=== PATIENT | female | born 1975 | race Caucasian/White ===

== ENCOUNTER 2022-10-26 10:00 | Emergency (ER) | payer SELFPAY ==
--- NOTE | 2022-10-26 10:08 | ED.EAR ---
HPI - Ear Problem General Chief complaint: Ear Stated complaint: Bilateral Ear Irritation Time Seen by Provider: 10/26/22 10:17 Source: patient and RN notes reviewed Mode of arrival: ambulatory Limitations: no limitations History of Present Illness HPI Narrative: 47-year-old female presents with concern for bilateral ear pain. She reports she has had sinus congestion, pressure, pain for 2-3 weeks. She reports she has been taking Sudafed. Reports she woke up last night with ear pain. She denies changes in hearing or drainage from the ear MD Complaint: ear pain Related Data Home Medications Medication Instructions Recorded Confirmed duloxetine 30 mg capsule,delayed 30 mg PO DAILY 10/26/22 10/26/22 release Allergies Allergy/AdvReac Type Severity Reaction Status Date / Time Penicillins AdvReac Mild Rash Verified 10/26/22 10:13 bee stings AdvReac Severe Anaphylactic Uncoded 10/26/22 10:13 Shock Review of Systems Review of Systems: CONSTITUTIONAL: Reports malaise. Denies chills, sweats, or fever. EYES: Denies visual changes, redness, or discharge. ENT: Reports rhinorrhea, congestion, sinus pain. Denies sore throat. Reports bilateral ear pain CARDIOVASCULAR: Denies chest pain, palpitations, or edema. RESPIRATORY: Denies cough. Denies dyspnea. GASTROINTESTINAL: Denies abdominal pain, nausea, vomiting, diarrhea SKIN: Denies rash or itching. MUSCULOSKELETAL: Denies myalgia. NEUROLOGIC: Reports headache. All systems reviewed & are unremarkable except as noted in HPI and below PMFSH Comments At time of signature, agree with nursing past medical, surgical, social and family history. There is no relevant family history pertinent to the presenting complaint Exam Narrative: GENERAL: Nontoxic appearing and in no acute distress. HEAD: Normocephalic EYES: PERRLA, conjunctivae clear ENT: Nares clear, turbinates edematous, sinus tenderness. Mucous membranes moist. TM pearly oliveira with sharp light reflex bilaterally; no tragal tenderness. Oropharynx not erythematous without lesions. Tonsils not enlarged and without exudate, no drooling, no hoarseness, no trismus, uvula midline. NECK: Supple. No lymphadenopathy CHEST: Clear to auscultation, breath sounds equal. No wheezing, rhonchi, rales, or stridor. No respiratory distress, speaks in full sentences. HEART: Regular rate and rhythm. No murmur heard. SKIN: Warm, dry, no rash. NEURO: Alert and oriented x3. PSYCH: Normal mood and affect Course Course Emergency Course: Patient is aware of diagnosis, understands and agrees to treatment plan. Anticipatory guidance given. Patient agrees to follow-up as directed and is aware of reasons to seek care at the emergency department. Portions of this record may have been created with voice recognition software Level of Care: Express Care Visit Vital Signs Vital signs: Reviewed. Medical Decision Making MDM Narrative Medical decision making narrative: Differential diagnosis considered: Puri virus, strep pharyngitis, allergic rhinitis, upper respiratory tract infection, sinusitis, rhinosinusitis, nasopharyngitis. viral pharyngitis, otitis media, otitis externa, otitis effusion, cerumen impaction, foreign body. Exam findings show no acute concerns or changes; patient is non-toxic appearing and is in no distress. Patient is appropriate for outpatient treatment and follow-up. Critical Care Time Critical Care Time Critical Care Time: No Discharge Plan Discharge Clinical Impression: Acute bacterial sinusitis Patient Disposition: Home, Self-Care Condition: Stable Instructions: Antibiotic Form, Sinusitis (ED) Additional Instructions: Take medications as directed Nonprescription pain medications, such as acetaminophen (eg, Tylenol) or ibuprofen (eg, Motrin, Advil), are recommended for pain. Flushing the nose and sinuses with a saline solution several times per day has been proven to decrease pain associated with
[2022-10-26 10:15] VITALS: BP 120/79; PULSE 76; RESP 18; TEMP 36.4; O2SAT 98
== END 2022-10-26 10:30 | disposition home or self-care (01) ==
PROVIDERS: Emergency Provider Nurse Practitioner; PCP Nurse Practitioner Family
DX: J01.90 Acute sinusitis, unspecified (principal)
CPT/HCPCS: 99213; G0463

== ENCOUNTER 2023-09-20 14:31 | Outpatient (CLI) | payer SELFPAY ==
--- NOTE | ~2023-09-20 | MR_ITS ---
MRI of the left ankle Clinical history: Pain Technique: Coronal proton-density and proton-density fat-sat images, axial proton-density and proton- density fat-sat images, and sagittal proton-density and proton-density fat-sat images were acquired. Findings: Syndesmotic ligaments are intact. There is probable increased signal of the anterior talofi bular ligament and calcaneofibular ligament. Posterior talofibular ligament is intact. Deltoid ligame nt is intact. Medial flexor tendons, peroneal tendons, anterior extensor tendons, and Achilles tendon are intact. T here is probable mild peroneal tenosynovitis at the level of the peroneal tubercle. There is no osteochondral lesion of the talar dome. There is amorphous marrow edema at the medial asp ect of the talus, compatible with bone contusion. Remaining bone marrow signals are unremarkable. Ethel nt spaces are preserved. Moderate to large subtalar joint effusion present. Moderate tibiotalar joint effusion present. Possible crescentic loose body present anteriorly tibiotalar joint. Plantar fascia is intact. There is mild subcutaneous soft tissue edema laterally. Impression: Probable sprain of the anterior talofibular and calcaneofibular ligaments. Bone contusion of the medial aspect of the talus. Tibiotalar and subtalar joint effusions, with suspected loose body anteriorly in the tibiotalar joint . Lateral subcutaneous soft tissue edema. Reviewed, dictated and finalized at [facility]. 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 Bone contusion of the medial aspect of the talus. Tibiotalar and subtalar joint effusions, with suspected loose body anteriorly i n the tibiotalar joint. Lateral subcutaneous soft tissue edema.
== END 2023-09-20 14:32 ==
DX: S90.02XA Contusion of left ankle, initial encounter (principal); M25.472 Effusion, left ankle; X58.XXXA Exposure to other specified factors, initial encounter
CPT/HCPCS: 73721

== ENCOUNTER 2025-06-03 08:35 | Outpatient (CLI) | payer BC, SELFPAY ==
--- NOTE | ~2025-06-03 | MR_ITS ---
EXAMINATION: MR knee LT wo con DATE: 06/03/2025 09:20 INDICATION: Left knee pain TECHNIQUE: Magnetic resonance imaging (MRI) of the left knee was performed without intravenous contrast. Sequences included coronal PD-weighted FSE, coronal PD-weighted FS FSE, sagittal T2-weighted FSE, sagittal PD-weighted FS FSE and axial PD weighted fat saturated FSE. COMPARISON: None. FINDINGS: Medial compartment: Medial meniscus is normal. Small partial-thickness chondral fissure without degenerative subchondral changes at the lateral left side of the central weightbearing medial femoral condyle. Lateral compartment: Lateral meniscus is normal. Articular cartilage is normal. Patellofemoral compartment: Small partial-thickness chondral fissures without degenerative subchondral changes at the inferior aspect of the medial trochlea and and the juxtaposed central aspect of the medial patellar facet. Ligaments and tendons: Anterior and posterior cruciate ligaments are normal. Partial tear of the anterior portion of the proximal medial collateral ligament as well as of portions of the proximal aspect of the meniscal femoral ligament. The fibular collateral ligament complex is normal. The extensor mechanism is normal. The visualized medial and lateral hamstring tendons as well as the iliotibial band are normal. Fluid: Physiologic amount of fluid in the joint space. No loose osteochondral bodies identified. Osseous/other: Normal marrow signal. No fracture or pathologic marrow replacing process. IMPRESSION: 1. Moderate grade sprain/partial tear of the proximal medial collateral ligament including portions of the and deeper medial meniscofemoral ligament. 2. 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 Reviewed, dictated and finalized at location A. [employer] WORKER IMPRESSION: 1. Moderate grade sprain/partial tear of the proximal medial collateral ligamen t including portions of the and deeper medial meniscofemoral ligament. 2. Small regions of moderate grade chondromalacia with partial-thickness chondr al fissures along the central weightbearing medial femoral condyle, the medial patellar facet and medial trochlea.
== END 2025-06-03 08:36 | disposition home or self-care (01) ==
PROVIDERS: PCP Orthopaedic Surgery; Visit Provider Orthopaedic Surgery
DX: S83.412A Sprain of medial collateral ligament of left knee, initial encounter (principal); M94.262 Chondromalacia, left knee; X58.XXXA Exposure to other specified factors, initial encounter
CPT/HCPCS: 73721